=== PATIENT | male | born 1985 | race African-American/Black ===

== ENCOUNTER 2020-06-09 16:39 | Emergency (ER) | payer MEDICAID ==
[~2020-06-09] VITALS: Ht 170.2 cm; Wt 65.8 kg
[2020-06-09 20:13] VITALS: BP 94/61
== END 2020-06-09 21:39 | disposition home or self-care (01) ==
LOC: ER 16:39
DX: S92.321A Displaced fracture of second metatarsal bone, right foot, initial encounter for closed fracture (principal); S92.331A Displaced fracture of third metatarsal bone, right foot, initial encounter for closed fracture; W22.01XA Walked into wall, initial encounter; Y93.01 Activity, walking, marching and hiking; Y92.488 Other paved roadways as the place of occurrence of the external cause; Y99.8 Other external cause status
CPT/HCPCS: 29515; 73630